=== PATIENT | female | born 1970 | race Two or more races ===

== ENCOUNTER → 2024-11-13 | Outpatient (CLI) | payer OTHER, SELFPAY ==
--- NOTE | 2024-11-13 14:30 | XR_ITS ---
Examination: Breast ultrasound, unilateral, left complete Date and time of exam: November 13, 2024 1431 hours INDICATIONS: Left breast sonogram March 26, 2024 12:00 nodule 3 mm 4:00 nodule 8 mm Technique: Real-time richey scale ultrasonographic imaging performed left breast including all 4 quadrants as well as nipple retroareolar and axillary region. Findings: 12:00 nodule circumscribed 3 x 3 mm 12:00 nodule circumscribed 5 x 5 mm 12:00 nodule circumscribed 4 x 5 mm 4:00 nodule circumscribed 10 x 8 mm 9:00 nodule circumscribed 6 x 5 mm 9:00 nodule circumscribed 6 x 6 mm 11:00 nodule circumscribed 4 x 4 millimeter IMPRESSION: BI-RADS Category 3: Probably benign findings One additional 6 month left breast sonogram follow-up is needed to document stability of multiple solid nodules described above
== END | disposition home or self-care (01) ==
LOC: CDIM 14:10
PROVIDERS: PCP Internal Medicine; Referring Provider Obstetrics & Gynecology; Visit Provider Obstetrics & Gynecology
DX: N63.25 Unspecified lump in the left breast, overlapping quadrants (principal); N63.22 Unspecified lump in the left breast, upper inner quadrant; N63.23 Unspecified lump in the left breast, lower outer quadrant
CPT/HCPCS: 76641

== ENCOUNTER → 2025-04-13 | Outpatient (CLI) | payer OTHER, SELFPAY ==
--- NOTE | 2025-04-13 14:30 | XR_ITS ---
Examination: Screening digital mammography, bilateral Computer aided detection 3-D breast Tomosynthesis, bilateral Date and time of exam: 04/13/2025, 2:23 p.m. Comparisons: Mammograms and ultrasounds August 2018 - November 2024 Indications: Screening Technique: Nonmagnified MLO, CC views of the breasts to been obtained, reconstructed from 3-D Tomosynthesis images. R2 computer aided detection program utilized for evaluation of suspicious masses and/or abnormal calcifications. 3-D Tomosynthesis images obtained. Technologist: Findings: The breasts are heterogeneously dense, which may obscure small masses. No evidence of abnormal masses or suspicious calcifications. Bilateral subglandular silicone implants appear intact. Impression: BI-RADS category 2: Benign findings Recommend 1 year follow-up mammogram Please note the patient will be due for left breast ultrasound exam in May 2025 for 6-month follow-up of probably benign ultrasound masses seen on ultrasound exam dated 11/13/2024
== END | disposition home or self-care (01) ==
LOC: CDIM 14:15
PROVIDERS: Referring Provider Internal Medicine; Visit Provider Internal Medicine
DX: Z12.31 Encounter for screening mammogram for malignant neoplasm of breast (principal); R92.323 Mammographic fibroglandular density, bilateral breasts; R92.8 Other abnormal and inconclusive findings on diagnostic imaging of breast
CPT/HCPCS: 77063; 77067